=== PATIENT | male | born 1965 | race Caucasian/White ===

== ENCOUNTER 2017-09-12 15:10 | Inpatient (IN) | payer OTHER ==
[2017-09-12] MEDS ORDERED: SODIUM CHLORIDE 1,000 ML IV SCH (15:15)
--- NOTE | 2017-09-12 15:15 | PDOC ---
History of Present Illness - General Stated Complaint: WEAKNESS Time Seen by Provider: 09/12/17 15:13 - History of Present Illness Initial Comments: 09/12/17 16:07 Mr. Gandhi is a 51 yo male w/ pmh of HTN, HLD, and prior WI in 2010 (2 stents , currently on plavix), who presents with acute onset of right sided facial numbness and difficulty walking. EMS was called and by arrival his symptoms had resolved. He is currently resting comfortably although he says he forgot to take his medicines today. The patient denies chest pain, shortness of breath, headache and dizziness. Denies fever, chills, nausea, vomit, diarrhea and constipation. Denies dysuria, frequency, urgency and hematuria. Allergies: NKDA Past History - Past Medical History Allergies/Adverse Reactions: Allergies Allergy/AdvReac Type Severity Reaction Status Date / Time No Known Allergies Allergy Verified 09/12/17 15:38 Review of Systems - Review of Systems Comments:: 09/12/17 16:16 GENERAL/CONSTITUTIONAL: No fever or chills. No weakness. HEAD, EYES, EARS, NOSE AND THROAT: +Right sided facial tingling/numbness as described CARDIOVASCULAR: No chest pain or shortness of breath RESPIRATORY: No cough, wheezing, or hemoptysis. GASTROINTESTINAL: No nausea, vomiting, diarrhea or constipation. GENITOURINARY: No dysuria, frequency, or change in urination. MUSCULOSKELETAL:+Unspecified difficulty walking. SKIN: No rash NEUROLOGIC: No headache, vertigo, loss of consciousness, or change in strength/ sensation. ENDOCRINE: No increased thirst. No abnormal weight change HEMATOLOGIC/LYMPHATIC: No anemia, easy bleeding, or history of blood clots. ALLERGIC/IMMUNOLOGIC: No hives or skin allergy. *Physical Exam - Physical Exam Comments: 09/12/17 16:17 GENERAL: Awake, alert, and fully oriented, in no acute distress HEAD: No signs of trauma, normocephalic, atraumatic EYES: PERRLA, EOMI, sclera anicteric, conjunctiva clear ENT: Auricles normal inspection, hearing grossly normal, nares patent, oropharynx clear without exudates. Moist mucosa NECK: Normal ROM, supple, no lymphadenopathy, JVD, or masses LUNGS: No distress, speaks full sentences, clear to auscultation bilaterally HEART: Regular rate and rhythm, normal S1 and S2, no murmurs, rubs or gallops, peripheral pulses normal and equal bilaterally. ABDOMEN: Soft, nontender, normoactive bowel sounds. No guarding, no rebound. No masses EXTREMITIES: Normal inspection, Normal range of motion, no edema. No clubbing or cyanosis. NEUROLOGICAL: Cranial nerves II through XII grossly intact. Normal speech, normal gait, no focal sensorimotor deficits SKIN: Warm, Dry, normal turgor, no rashes or lesions noted. NIH Stroke Scale - Last Known Well Date/Time & Onset Date Last Known Well: 09/12/17 Time Last Known Well: 14:45 - Initial Evaluation Level of consciousness: Alert Ask patient the month and their age: Answers both correctly Ask patient to open & close eyes; make fist and let go: Obeys both correctly Best gaze (horizontal eye movement): Normal Visual field testing: No visual field loss Facial paresis (Show teeth/raise eyebrows/close eyes tight): Normal symmetrical movement Motor Function: Left Arm: Normal Motor Function: Right Arm: Normal (extends arm 90 (or 45) degrees for 10 seconds without drift Motor Function: Left Leg: Normal (extends leg 30 degrees for 5 seconds without drift) Motor Function: Right Leg: Normal (extends leg 30 degrees for 5 seconds without drift) Limb Ataxia: No ataxia Sensory(Use pinprick test arms,legs,trunk,face/side to side): Normal Best language (Describe picture, name items, read sentences): No Aphasia Dysarthria (read several words): Normal articulation Extinction and Inattention: No abnormality - Total Score NIH Stroke Scale Score: 0 tPA Exclusion Checklist 0-3hr - Time Elapsed Date last known well: 09/12/17 Time last known well: 14:45 Elaspsed time: Day(s) and 2 Hour(s) and 26 Minutes - Thrombolytic Therapy Candidate Is the patient eligible for Thrombolytic Therapy?: No - Exclusion Criteria 0-3hr SBP greater than 185 or DBP greater than 110mmHg despite tx: No Recent IC/spinal surgery,head trauma or stroke w/in last 3mo: No Hx of previous IC hemorrhage, IC neoplasm, AVM or aneurysm: No Active internal bleeding: No Blding diathesis(low plt ct, inc PTT,INR>1.7 or use of NOAC): No Symptoms suggest subarachnoid hemorrhage: No CT demonstrates multilobar infarct(>1/3 cerebral hemiphere): No Arterial puncture at noncompressible site in previous 7 days: No Blood glucose concentration less than 50mg/dL (2.7mmol/L): No - Relative Exclusion Criteria 0-3h Life expectancy <1yr/severe co-morbid illness/TEACHER SPECIALIST on admit: No : No Patient/family refused: No Rapid improvement: Yes Stroke severity too mild: No Recent acute WI (w/in previous 3 months): No Seizure at onset with postictal residual neuro impairments: No Major surgery or serious trauma w/in previous 14 days: No Recent GI or hemorrhage (w/in previous 21 days): No - Ineligibility reason(s) Reasons No tPA given: See reason(s) noted above Critical Care Time/MDM Note - Medical Decision Making Note: 09/12/17 16:19 Mr. Gandhi presents w/ complete resolution of all neurological symptoms. Stroke code activated with Dr. Puri consulted for neurology. Patient will be admitted for evaluation and monitoring as well as MRI. BP will be monitiored to maintain under 210/120 per neurology. 09/12/17 16:48 Patient will be admitted for obs and MRI. Discharge Disposition - Diagnosis TIA (transient ischemic attack) Qualifiers: Transient cerebral ischemia type: unspecified Qualified Code(s): G45.9 - Transient cerebral ischemic attack, unspecified - Discharge Dispostion Admit: Yes - Referrals - Patient Instructions - Post Discharge Activity
[2017-09-12] MEDS ORDERED: ATORVASTATIN CA 80 MG TABLET (FP) PO ONE (15:30)
[2017-09-12] MEDS ORDERED: ASPIRIN 325 MG TABLET PO ONE (15:30)
--- NOTE | 2017-09-12 15:40 | PDOC ---
Attending Attestation - Resident Resident Name: Chaka Retana - HPI HPI: 09/13/17 09:50 Pt presents to the ED with the acute onset of R sided weakness and numbness. PAtient and EMS report that when they arrived at the scene he was weak on his entire right side and unable to walk. Symptoms rapidly improved during transport to the hospital and now his only complaint is R facial and R finger numbness. - Physicial Exam PE: 09/13/17 09:54 Agree with resident exam. Patient is alert and oriented, with fluent, clear speech. Intact motor strength of arms and legs. No neurologic deficit identified except for decreased light touch sensation of R face and R fingertips. - Medical Decision Making 09/13/17 09:55 Pt presents to the ED with likely TIA. CT head is negative. Will admit to medicine for CT head and TIA work up.
[2017-09-12] MEDS ORDERED: ASPIRIN 325 MG TABLET ONE (16:15)
[2017-09-12] MEDS ORDERED: ATORVASTATIN CA 80 MG TABLET (FP) ONE (16:16)
[2017-09-12 16:39] LABS: BASOPHIL 0.4 % (0-2.0); EOSINOPHIL 1.7 % (0-4.5); MCH 30.5 pg (25.7-33.7); MCHC 33.9 g/dl (32.0-35.9); MEAN CELL VOLUME 90.1 fl (80-96); MEAN PLT VOLUME 9.8 fl (7.5-11.1); NEUTROPHILS 74.8 % (42.8-82.8); PLATELET COUNT 181 K/MM3 (134-434); RDW 14.3 % (11.9-15.9); URINE APPEARANCE CLEAR; URINE BILIRUBIN NEGATIVE (NEGATIVE); URINE BLOOD NEGATIVE (NEGATIVE); URINE COLOR LTYELLOW; URINE GLUCOSE (UA) 1+ (NEGATIVE); URINE KETONE NEGATIVE (NEGATIVE); URINE LEUK ESTERASE NEGATIVE (NEGATIVE); URINE NITRITE NEGATIVE (NEGATIVE); URINE PROTEIN NEGATIVE (NEGATIVE); WHITE BLOOD COUNT 5.2 K/mm3 (4.0-10.0)
[2017-09-12 17:04] LABS: INR 1.12 (0.82-1.09); PROTHROMBIN TIME (PATIENT) 12.6 SEC (9.98-11.88)
[2017-09-12 17:13] LABS: ALBUMIN 3.8 g/dl (3.4-5.0); ANION GAP 4 (8-16); BILIRUBIN,TOTAL 0.5 mg/dL (0.2-1.0); CALCIUM 8.5 mg/dL (8.5-10.1); CHOLESTEROL 119 mg/dL (50-200); CO2 31 mmol/L (21-32); CREATININE 1.3 mg/dL (0.7-1.3); GLUCOSE,RANDOM 108 mg/dL (74-106); SGOT/AST 18 U/L (15-37); SGPT/ALT 29 U/L (12-78); TOT PROT 7.3 g/dl (6.4-8.2)
[2017-09-12 17:14] LABS: ALK PHOS 81 U/L (45-117); CPK 244 IU/L (39-308); TROPONIN I 0.03 ng/ml (0.00-0.05)
[2017-09-12 19:07] LABS: URINE LEUK ESTERASE Negative (NEGATIVE)
[2017-09-12] MEDS ORDERED: POTASSIUM CHLORIDE TABS 20 MEQ TABLET.ER (FP) PO SCH (19:45)
--- NOTE | 2017-09-12 20:05 | HP ---
CHIEF COMPLAINT: Right facial numbness, difficulty swallowing, tingling to tips of fingers of right hand. PCP: Willis Greenberg, [place] [facility]: Dr. Boy Hoffman, [facility] [phone] HISTORY OF PRESENT ILLNESS: 51 year-old male with a PMH significant for HTN, HLD, CAD s/p MA s/p stents x 2 (2010). 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 He was eating his lunch today when he developed right facial numbness, difficulty swallowing, and tingling in the fingertips of his right hand. His co-workers called 911. By the time EMS arrived , his symptoms were resolving, and by the time he reached the ED they were completely resolved. The symptoms have not recurred. Patient states he did not take his home medications for the past two days because he was busy but is generally compliant with his medication regimen. He last saw his mortgage accounting clerk, Dr. Hoffman, a year ago. He gets his prescriptions at [facility] in [place]. Patient denies chest pain/pressure, palpitations, lightheadedness, SOB, VU, orthopnea, and/or bilateral lower extremity edema. He denies headache, vision change, and/or weakness in any extremity. ER course was notable for: (1) BP 178/128 (2) Trop neg x 1 (3) CT head: no acute process Recent Travel: No PAST MEDICAL HISTORY: Hypertension Hyperlipidemia Coronary artery disease PAST SURGICAL HISTORY: Coronary artery disease x 2 (2000) Social History: Smoking: no Alcohol: occasional Drugs: no Family History: Mother 44 of MA; father 48 after MVC; brother 44 "heart too big"; sister 46 ovarian cancer; 2 brothers a&w Allergies No Known Allergies Allergy (Verified 09/12/17 15:38) HOME MEDICATIONS: REVIEW OF SYSTEMS CONSTITUTIONAL: Absent: fever, chills, diaphoresis, generalized weakness, malaise, loss of appetite, weight change HEENT: Absent: rhinorrhea, nasal congestion, throat pain, throat swelling, difficulty swallowing, mouth swelling, ear pain, eye pain, visual changes CARDIOVASCULAR: Absent: chest pain, syncope, palpitations, irregular heart rate, lightheadedness , peripheral edema RESPIRATORY: Absent: cough, shortness of breath, dyspnea with exertion, orthopnea, wheezing, stridor, hemoptysis GASTROINTESTINAL: Absent: abdominal pain, abdominal distension, nausea, vomiting, diarrhea, constipation, melena, hematochezia GENITOURINARY: Absent: dysuria, frequency, urgency, hesitancy, hematuria, flank pain, genital pain MUSCULOSKELETAL: Absent: myalgia, arthralgia, joint swelling, back pain, neck pain SKIN: Absent: rash, itching, pallor HEMATOLOGIC/IMMUNOLOGIC: Absent: easy bleeding, easy bruising, lymphadenopathy, frequent infections ENDOCRINE: Absent: unexplained weight gain, unexplained weight loss, heat intolerance, cold intolerance NEUROLOGIC: right facial numbness, difficulty swallowing, tingling to tips of fingers of right hand. Absent: headache, focal weakness or paresthesias, dizziness, unsteady gait, seizure, mental status changes, bladder or bowel incontinence PSYCHIATRIC: Absent: anxiety, depression, suicidal or homicidal ideation, hallucinations. PHYSICAL EXAMINATION Vital Signs - 24 hr 09/12/17 09/12/17 15:34 18:22 Temperature 98.3 F Pulse Rate 83 Pulse Rate [ 77 Right Radial] Respiratory 18 18 Rate Blood Pressure 178/128 Blood Pressure 159/103 [Right Arm] O2 Sat by Pulse 97 99 Oximetry (%) GENERAL: Awake, alert, and fully oriented, in no acute distress. HEAD: Normal with no signs of trauma. EYES: Pupils equal, round and reactive to light, extraocular movements intact, sclera anicteric, conjunctiva clear. No lid lag. EARS, NOSE, THROAT: Ears normal, nares patent, oropharynx clear without exudates. Moist mucous membranes. NECK: Normal range of motion, supple without lymphadenopathy, JVD, or masses. LUNGS: Breath sounds equal, clear to auscultation bilaterally. No wheezes, and no crackles. No accessory muscle use. HEART: Regular rate and rhythm, normal S1 and S2, murmur best heard over aortic area. ABDOMEN: Soft, nontender, not distended, normoactive bowel sounds, no guarding, no rebound, no masses. No hepatomegaly or splenomegaly. MUSCULOSKELETAL: Normal range of motion at all joints. No bony deformities or tenderness. No CVA tenderness. UPPER EXTREMITIES: 2+ pulses, warm, well-perfused. No cyanosis. No clubbing. No peripheral edema. LOWER EXTREMITIES: 2+ pulses, warm, well-perfused. No calf tenderness. No peripheral edema. NEUROLOGICAL: Cranial nerves II-XII intact. Normal speech. Gait not observed. PSYCHIATRIC: Cooperative. Good eye contact. Appropriate mood and affect. SKIN: Warm, dry, normal turgor Laboratory Results - last 24 hr 09/12/17 09/12/17 09/12/17 16:30 16:30 16:30 WBC 5.2 RBC 4.78 Hgb 14.6 Hct 43.1 MCV 90.1 MCH 30.5 MCHC 33.9 RDW 14.3 Plt Count 181 MPV 9.8 Neutrophils % 74.8 Lymphocytes % 14.7 Monocytes % 8.4 Eosinophils % 1.7 Basophils % 0.4 PT with INR 12.60 H INR 1.12 Sodium Potassium Chloride Carbon Dioxide Anion Gap BUN Creatinine Creat Clearance w eGFR Random Glucose Calcium Total Bilirubin AST ALT Alkaline Phosphatase Creatine Kinase Troponin I Total Protein Albumin Triglycerides Cholesterol Total LDL Cholesterol HDL Cholesterol Urine Color Ltyellow Urine Appearance Clear Urine pH 6.0 Ur Specific [place] 1.016 Urine Protein Negative Urine Glucose (UA) 1+ H Urine Ketones Negative Urine Blood Negative Urine Nitrite Negative Urine Bilirubin Negative Urine Urobilinogen 2.0 Ur Leukocyte Esterase Negative Blood Type Antibody Screen 09/12/17 09/12/17 16:30 16:30 WBC RBC Hgb Hct MCV MCH MCHC RDW Plt Count MPV Neutrophils % Lymphocytes % Monocytes % Eosinophils % Basophils % PT with INR INR Sodium 138 Potassium 3.4 L Chloride 103 Carbon Dioxide 31 Anion Gap 4 L BUN 18 Creatinine 1.3 Creat Clearance w eGFR 58.43 Random Glucose 108 H Calcium 8.5 Total Bilirubin 0.5 AST 18 ALT 29 Alkaline Phosphatase 81 Creatine Kinase 244 Troponin I 0.03 Total Protein 7.3 Albumin 3.8 Triglycerides 81 Cholesterol 119 Total LDL Cholesterol 65 HDL Cholesterol 42 Urine Color Urine Appearance Urine pH Ur Specific [place] Urine Protein Urine Glucose (UA) Urine Ketones Urine Blood Urine Nitrite Urine Bilirubin Urine Urobilinogen Ur Leukocyte Esterase Blood Type A POSITIVE Antibody Screen Negative ASSESSMENT/PLAN: 51 year-old male with a PMH significant for HTN, HLD, CAD s/p MA s/p stents x 2 (2010). TIA v. CVA v. hypertensive encephalopathy --CT head negative for acute process; mild calcification of cavernous carotid arteries --MRI brain pending --US carotids ordered --continue ASA, Plavix, high-dose Lipitor --neuro consult pending CAD s/p stents x 2 --troponin neg x 1, two pending --CXR pending --ASA, Plavix, Lipitor; hold beta clifton for now for permissive hypertension Hypertensive urgency --seen and evaluated by neuro, BP goal <210/<120 --BP 178/128-->159/103-->160/97 --hold home anti-hypertensives, Toprol XL and Losartan; restart cautiously tonight if BP exceeds goal --vital signs q4h, reinforced with nursing staff, their input appreciated Hyperlipidemia --continue Lipitor Hypokalemia --repleted with PO FEN Fluids: PO intake adequate Electrolytes: replete as indicated Nutrition: NPO until nurse makes initial bedside assessment; formal swallow evaluation if needed DVT prophylaxis: subq heparin Physical therapy evaluation Dispo: continues to require observation. Full code. Visit type - Emergency Visit Emergency Visit: Yes ED Registration Date: 09/12/17 Care time: The patient presented to the Emergency Department on the above date and was hospitalized for further evaluation of their emergent condition. - New Patient This patient is new to me today: Yes Date on this admission: 09/12/17 - Critical Care Critical Care patient: No
[2017-09-12] MEDS: CLOPIDOGREL BISULFATE 75 MG TABLET (FP) PO SCH (21:40)
[2017-09-12] MEDS ORDERED: CLOPIDOGREL BISULFATE 75 MG TABLET (FP) ONE (21:43)
[2017-09-12] MEDS ORDERED: POTASSIUM CHLORIDE TABS 20 MEQ TABLET.ER (FP) PO ONE (21:44)
[2017-09-12] MEDS: HEPARIN NA (PORCINE) 5,000 UNITS/ML 1ML VIAL SQ SCH (22:54)
[2017-09-12 23:26] VITALS: BMI 32.7
[2017-09-12] MEDS ORDERED: ACETAMINOPHEN 325 MG TABLET (FP) PO ONE (23:36)
[2017-09-13] MEDS: HEPARIN NA (PORCINE) 5,000 UNITS/ML 1ML VIAL SQ SCH ×3 (05:44→21:04)
[2017-09-13 07:35] LABS: BASOPHIL 0.8 % (0-2.0); EOSINOPHIL 4.2 % (0-4.5); MCH 30.5 pg (25.7-33.7); MEAN CELL VOLUME 89.7 fl (80-96); MEAN PLT VOLUME 9.9 fl (7.5-11.1); NEUTROPHILS 51.3 % (42.8-82.8); PLATELET COUNT 177 K/MM3 (134-434); RDW 13.8 % (11.9-15.9); WHITE BLOOD COUNT 3.8 K/mm3 (4.0-10.0)
[2017-09-13 08:06] LABS: ALBUMIN 3.8 g/dl (3.4-5.0); ALK PHOS 69 U/L (45-117); ANION GAP 8 (8-16); BILIRUBIN,TOTAL 0.9 mg/dL (0.2-1.0); CALCIUM 8.9 mg/dL (8.5-10.1); CO2 27 mmol/L (21-32); CREATININE 0.9 mg/dL (0.7-1.3); GLUCOSE,RANDOM 81 mg/dL (74-106); MAGNESIUM 2.2 mg/dL (1.8-2.4); PHOSPHOROUS 2.1 mg/dL (2.5-4.9); SGOT/AST 13 U/L (15-37); SGPT/ALT 25 U/L (12-78); TOT PROT 6.8 g/dl (6.4-8.2)
[2017-09-13 08:27] LABS: THYROID STIMULATING HORMONE 1.41 uIU/ml (0.358-3.74)
[2017-09-13] MEDS: POTASSIUM CHLORIDE TABS 20 MEQ TABLET.ER (FP) PO SCH ×2 (09:14→16:09)
[2017-09-13] MEDS: CLOPIDOGREL BISULFATE 75 MG TABLET (FP) PO SCH (09:15)
--- NOTE | 2017-09-13 09:47 | CON.CARD ---
Consult Consult Specialty:: Cardiology Referred by:: Hospitalist Medicine Reason for Consultation:: TIA - History of Present Illness Chief Complaint: TIA History of Present Illness: Right facial numbness, difficulty swallowing, tingling to tips of fingers of right hand. PCP: Willis Greenberg [place] [facility] [phone] HISTORY OF PRESENT ILLNESS: 51 year-old male with a PMH significant for HTN, HLD, CAD s/p NE s/p stents x 2 (2010). Patient presented with right facial numbness, difficulty swallowing, and tingling in the fingertips of his right hand since resolved without recurrence. Patient states he did not take his home medications for the past two days because he was busy but is generally compliant with his medication regimen. He last saw his linux devops engineer, Dr. Hoffman, a year ago. He gets his prescriptions at [facility] in [place]. Patient denies chest pain/ pressure, palpitations, lightheadedness, SOB, VU, orthopnea, and/or bilateral lower extremity edema. He denies headache, vision change, and/or weakness in any extremity. ER course was notable for: (1) BP 178/128 (2) Trop neg x 1 (3) CT head: no acute process - History Source History Provided By: Patient Limitations to Obtaining History: No Limitations - Past Medical History Cardio/Vascular: Yes: CAD, HTN, Hyperlipdemia, [place] - Past Surgical History Past Surgical History: Yes: Stent - Alcohol/Substance Use Hx Alcohol Use: Yes (socially) - Smoking History Smoking history: Never smoked Have you smoked in the past 12 months: No Home Medications - Allergies Allergies/Adverse Reactions: Allergies Allergy/AdvReac Type Severity Reaction Status Date / Time No Known Allergies Allergy Verified 09/12/17 15:38 - Home Medications Home Medications: Ambulatory Orders Aspirin [Ecotrin] 325 mg PO DAILY 09/12/17 Atorvastatin Ca [Lipitor] 40 mg PO HS 09/12/17 Clopidogrel Bisulfate [Plavix -] 75 mg PO DAILY 09/12/17 Losartan Potassium 50 mg PO DAILY 09/12/17 Metoprolol Succinate [Toprol Xl -] 100 mg PO DAILY 09/12/17 Review of Systems - Review of Systems Neurological: reports: Parasthesia Vital Signs: Vital Signs Temperature 98.1 F 09/13/17 09:13 Pulse Rate 80 09/13/17 09:13 Respiratory Rate 18 09/13/17 09:13 Blood Pressure 157/105 09/13/17 09:13 O2 Sat by Pulse Oximetry (%) 97 09/13/17 06:00 Constitutional: Yes: No Distress, Calm Neck: Yes: Supple Respiratory: Yes: Regular, CTA Bilaterally Gastrointestinal: Yes: Normal Bowel Sounds, Soft Cardiovascular: Yes: Regular Rate and Rhythm JVD: No Carotid Bruit: No Heart Sounds: Yes: S1, S2 Edema: No - Other Data Labs, Other Data: CBC, BMP 09/13/17 06:00 09/13/17 06:00 INR, PTT INR 1.12 (0.82-1.09) 09/12/17 16:30 Troponin, BNP 09/12/17 09/12/17 16:30 22:05 Troponin I 0.03 0.04 D Troponin, BNP 09/12/17 09/12/17 16:30 22:05 Troponin I 0.03 0.04 D NSR @ 78 LVH, PVC Ejection Fraction %: LVEF > or = 40 % Imaging - Results Chest X-ray: Report Reviewed (NAD) Cat Scan: Report Reviewed (No acute changes) MRI: Report Reviewed (No acute stroke, chronic left thalamic microbleed, SVID) Problem List - Problems (1) Coronary artery disease Code(s): I25.10 - ATHSCL HEART DISEASE OF [place] CORONARY ARTERY W/O ANG PCTRS Qualifiers: Coronary Disease-Associated Artery/Lesion type: [place] artery [place] vs. transplanted heart: cherokee heart Associated angina: without angina Qualified Code(s): I25.10 - Atherosclerotic heart disease of [place] coronary artery without angina pectoris (2) S/P coronary artery stent placement Code(s): Z95.5 - PRESENCE OF CORONARY ANGIOPLASTY IMPLANT AND GRAFT (3) Hypertensive cardiomyopathy Code(s): I11.9 - HYPERTENSIVE HEART DISEASE WITHOUT HEART FAILURE; I43 - CARDIOMYOPATHY IN DISEASES CLASSIFIED ELSEWHERE Qualifiers: Heart failure presence: without heart failure Qualified Code(s): I11.9 - Hypertensive heart disease without heart failure; I43 - Cardiomyopathy in diseases classified elsewhere; I43 - Cardiomyopathy in diseases classified elsewhere; I43 - Cardiomyopathy in diseases classified elsewhere; I43 - Cardiomyopathy in diseases classified elsewhere (4) Hyperlipidemia Code(s): E78.5 - HYPERLIPIDEMIA, UNSPECIFIED Qualifiers: Hyperlipidemia type: pure hypercholesterolemia Qualified Code(s): E78.00 - Pure hypercholesterolemia, unspecified; E78.0 - Pure hypercholesterolemia (5) PVC (premature ventricular contraction) Code(s): I49.3 - VENTRICULAR PREMATURE DEPOLARIZATION (6) Cerebrovascular small vessel disease Code(s): I67.9 - CEREBROVASCULAR DISEASE, UNSPECIFIED (7) TIA (transient ischemic attack) Code(s): G45.9 - TRANSIENT CEREBRAL ISCHEMIC ATTACK, UNSPECIFIED Qualifiers: Transient cerebral ischemia type: unspecified Qualified Code(s): G45.9 - Transient cerebral ischemic attack, unspecified Assessment/Plan 1. TIA since resolved, cerebrovascular disease 2. CAD s/p NE, PCI (Stent 2010), angina pectoris 3. HTN/HCVD 4. Hyperlipidemia 5. PVC P:1. Continue ASA 81 qd, Plavix 75 qd, Lipitor 40 qhs, and resume losartan 50 qd , Toprol XL 100 qd 2. F/u echocardiogram to assess ventricular and valve fxn, cardiac monitor technician r/ o PAF 3. Emphasized importance of compliance 4. Thank you for consultative opportunity, plan for f/u with Dr. Hoffman of [facility] upon d/c.
[2017-09-13] MEDS ORDERED: ASPIRIN COATED 81 MG TABLET.EC PO SCH (10:00)
[2017-09-13] MEDS ORDERED: ASPIRIN 325 MG ENTERIC COATED TABLET (FP) PO SCH (10:00)
--- NOTE | 2017-09-13 10:09 | CON.NEURO ---
Consult - History of Present Illness History of Present Illness: 51 year old male history of HTN, HLD, CAD s/p Stents x 2010. Patient was working and experienced right sided face and arm numbness with difficulty swallowing. Patient was brought to hospital and his blood pressure was high. For two days he was not taking any medication, he was busy with work. - Past Medical History Cardio/Vascular: Yes: CAD, HTN, Hyperlipdemia, [place] - Past Surgical History Past Surgical History: Yes: Stent - Alcohol/Substance Use Hx Alcohol Use: Yes (socially) - Smoking History Smoking history: Never smoked Have you smoked in the past 12 months: No Home Medications - Allergies Allergies/Adverse Reactions: Allergies Allergy/AdvReac Type Severity Reaction Status Date / Time No Known Allergies Allergy Verified 09/12/17 15:38 - Home Medications Home Medications: Ambulatory Orders Aspirin [Ecotrin] 325 mg PO DAILY 09/12/17 Atorvastatin Ca [Lipitor] 40 mg PO HS 09/12/17 Clopidogrel Bisulfate [Plavix -] 75 mg PO DAILY 09/12/17 Losartan Potassium 50 mg PO DAILY 09/12/17 Metoprolol Succinate [Toprol Xl -] 100 mg PO DAILY 09/12/17 Physical Exam-Neuro Vital Signs: Vital Signs Temperature 98.1 F 09/13/17 09:13 Pulse Rate 80 09/13/17 09:13 Respiratory Rate 18 09/13/17 09:13 Blood Pressure 157/105 09/13/17 09:13 O2 Sat by Pulse Oximetry (%) 97 09/13/17 06:00 Labs: CBC, BMP 09/13/17 06:00 09/13/17 06:00 INR, PTT INR 1.12 (0.82-1.09) 09/12/17 16:30 Imaging - Results Cat Scan: Report Reviewed MRI: Report Reviewed Assessment/Plan CC right face numbness, difficulty swalling and tingling of right hand HPI 51 year old male history of HTN, HLD, CAD s/p Stents x 2010. Patient was working and experienced right sided face and arm numbness with difficulty swallowing. Patient was brought to hospital and his blood pressure was high. For two days he was not taking any medication, he was busy with work. PMH as above Medication-metoprolol, plavix and lipitor SH denies any toxic habits NKDA ROS reviewed in chart Neurological Examination afebrile bp 157/105, pulse 80 regular and rr 18 Alert oriented x 3 follow command and speech is normal EOMI, no face asymmetry , vf normal by conforntation motor is normal, sensation is normal ct head is normal mri of brain is normal carotid ultrasound is normal Assessment- Most likely tia due to stoppage of his medication Plan - continue antiplatelet and statin as current dose - as symptom happen yesterday early afternoon, now antihypertensive medication can chio resumed - carotid ultrasound pending - stroke education, emphasized to take medication and life style modifications follow up as outpatient Thank you so much Yazan Puri MD
[2017-09-13 12:13] LABS: TROPONIN I 0.04 ng/ml (0.00-0.05)
--- NOTE | 2017-09-13 13:04 | PN ---
Physical Exam: SUBJECTIVE: Patient seen and examined. Feels well, voices no complaints. No recurrence of numbness or paresthesias. OBJECTIVE: Vital Signs Period Temp Pulse Resp BP Sys/Novoa Pulse Ox Last 24 Hr 97.6 F-98.7 F 60-99 18-18 157-178/94-128 97-100 GENERAL: The patient is awake, alert, and fully oriented, in no acute distress. LUNGS: CTA HEART: RRR, S1, S2 ABDOMEN: Soft, nontender, nondistended, normoactive bowel sounds, no guarding, no rebound EXTREMITIES: 2+ pulses, warm, well-perfused, no edema NEUROLOGICAL: Cranial nerves II through XII intact. Normal speech, gait not observed. Laboratory Results - last 24 hr 09/12/17 09/12/17 09/12/17 16:30 16:30 16:30 WBC 5.2 RBC 4.78 Hgb 14.6 Hct 43.1 MCV 90.1 MCH 30.5 MCHC 33.9 RDW 14.3 Plt Count 181 MPV 9.8 Neutrophils % 74.8 Lymphocytes % 14.7 Monocytes % 8.4 Eosinophils % 1.7 Basophils % 0.4 PT with INR 12.60 H INR 1.12 Sodium Potassium Chloride Carbon Dioxide Anion Gap BUN Creatinine Creat Clearance w eGFR Random Glucose Calcium Phosphorus Magnesium Total Bilirubin AST ALT Alkaline Phosphatase Creatine Kinase Creatine Kinase Index CK-MB (CK-2) Troponin I Total Protein Albumin Triglycerides Cholesterol Total LDL Cholesterol HDL Cholesterol TSH Urine Color Ltyellow Urine Appearance Clear Urine pH 6.0 Ur Specific [place] 1.016 Urine Protein Negative Urine Glucose (UA) 1+ H Urine Ketones Negative Urine Blood Negative Urine Nitrite Negative Urine Bilirubin Negative Urine Urobilinogen 2.0 Ur Leukocyte Esterase Negative Blood Type Antibody Screen 09/12/17 09/12/17 09/12/17 16:30 16:30 22:05 WBC RBC Hgb Hct MCV MCH MCHC RDW Plt Count MPV Neutrophils % Lymphocytes % Monocytes % Eosinophils % Basophils % PT with INR INR Sodium 138 Potassium 3.4 L Chloride 103 Carbon Dioxide 31 Anion Gap 4 L BUN 18 Creatinine 1.3 Creat Clearance w eGFR 58.43 Random Glucose 108 H Calcium 8.5 Phosphorus Magnesium Total Bilirubin 0.5 AST 18 ALT 29 Alkaline Phosphatase 81 Creatine Kinase 244 Creatine Kinase Index 1.4 CK-MB (CK-2) 3.458 Troponin I 0.03 0.04 D Total Protein 7.3 Albumin 3.8 Triglycerides 81 Cholesterol 119 Total LDL Cholesterol 65 HDL Cholesterol 42 TSH Urine Color Urine Appearance Urine pH Ur Specific [place] Urine Protein Urine Glucose (UA) Urine Ketones Urine Blood Urine Nitrite Urine Bilirubin Urine Urobilinogen Ur Leukocyte Esterase Blood Type A POSITIVE Antibody Screen Negative 09/12/17 09/13/17 09/13/17 Unknown 06:00 06:00 WBC 3.8 L RBC 4.83 Hgb 14.8 Hct 43.4 MCV 89.7 MCH 30.5 MCHC 34.0 RDW 13.8 Plt Count 177 MPV 9.9 Neutrophils % 51.3 D Lymphocytes % 32.2 D Monocytes % 11.5 H Eosinophils % 4.2 D Basophils % 0.8 PT with INR INR Sodium 141 Potassium 3.5 Chloride 106 Carbon Dioxide 27 Anion Gap 8 BUN 12 D Creatinine 0.9 D Creat Clearance w eGFR > 60 Random Glucose 81 D Calcium 8.9 Phosphorus 2.1 L Magnesium 2.1 2.2 Total Bilirubin 0.9 D AST 13 L D ALT 25 Alkaline Phosphatase 69 Creatine Kinase Creatine Kinase Index CK-MB (CK-2) Troponin I 0.04 Total Protein 6.8 Albumin 3.8 Triglycerides Cholesterol Total LDL Cholesterol HDL Cholesterol TSH 1.41 Urine Color Urine Appearance Urine pH Ur Specific [place] Urine Protein Urine Glucose (UA) Urine Ketones Urine Blood Urine Nitrite Urine Bilirubin Urine Urobilinogen Ur Leukocyte Esterase Blood Type Antibody Screen Active Medications Generic Name Dose Route Start Last Admin Trade Name Freq PRN Reason Stop Dose Admin Aspirin 81 mg 09/13/17 13:02 Ecotrin - PO DAILY [facility] Atorvastatin Calcium 40 mg 09/13/17 22:00 Lipitor - PO HS [facility] Clopidogrel Bisulfate 75 mg 09/12/17 20:20 09/13/17 09:15 Plavix - PO 75 mg DAILY [facility] Administration Heparin Sodium (Porcine) 5,000 unit 09/12/17 22:00 09/13/17 05:44 Heparin - SQ 5,000 unit TID [facility] Administration Losartan Potassium 50 mg 09/13/17 13:15 Cozaar - PO DAILY [facility] Metoprolol Succinate 100 mg 09/13/17 13:15 Toprol Xl - PO DAILY [facility] Potassium Chloride 40 meq 09/13/17 10:00 09/13/17 09:14 K-Dur - PO 09/13/17 16:01 40 meq Q6H [facility] Administration ASSESSMENT/PLAN 51 year-old male with a PMH significant for HTN, HLD, CAD s/p [place] s/p stents x 2 (2010). TIA --CT head negative for acute process; mild calcification of cavernous carotid arteries --MRI brain: no definite infarct; microvascular chronic changes --US carotids: unremarkable --continue ASA, Plavix, high-dose Lipitor --neuro consult: TIA likely secondary to not taking ASA/Plavix for 48 hours --echo on Friday CAD s/p stents x 2 --no events on telemetry; serial ECGs sinus carleen --troponin neg x 3 --CXR unremarkable --continuue ASA, Plavix, Lipitor, Toprol XL Hypertensive urgency --seen and evaluated by neuro, OK to resume anti-hypertensives --restarted Toprol XL and Losartan, this evening BP still elevated 153/100; increase Losartan 50mg BID Hyperlipidemia --continue Lipitor Hypokalemia --repleted with PO; keep K>4 FEN Fluids: PO intake adequate Electrolytes: replete as indicated Nutrition: low sodium DVT prophylaxis: subq heparin Physical therapy evaluation Dispo: continues to require observation. Full code. Visit type - Emergency Visit Emergency Visit: Yes ED Registration Date: 09/12/17 Care time: The patient presented to the Emergency Department on the above date and was hospitalized for further evaluation of their emergent condition. - New Patient This patient is new to me today: No - Critical Care Critical Care patient: No
[2017-09-13] MEDS ORDERED: LOSARTAN POTASSIUM 50 MG TABLET (FP) PO SCH (13:15)
[2017-09-13] MEDS: METOPROLOL SUCCINATE 100 MG TAB.SR.24H (FP) PO SCH (13:38)
--- NOTE | 2017-09-13 20:17 | EKG ---
Test Reason : Blood Pressure : / mmHG Vent. Rate : 078 BPM Atrial Rate : 078 BPM P-R Int : 150 ms QRS Dur : 098 ms QT Int : 410 ms P-R-T Axes : 025 -23 -08 degrees QTc Int : 467 ms SINUS RHYTHM WITH OCCASIONAL PREMATURE VENTRICULAR COMPLEXES MINIMAL VOLTAGE CRITERIA FOR LVH, MAY BE NORMAL VARIANT SEPTAL INFARCT , AGE UNDETERMINED T WAVE ABNORMALITY, CONSIDER LATERAL ISCHEMIA ABNORMAL ECG NO PREVIOUS ECGS AVAILABLE Confirmed by YASMANY MINAYA, VIPUL ([id number]) on 09/13/2017 8:16:52 PM Referred By: Confirmed By:VIPUL JADE MD
[2017-09-13] MEDS: LOSARTAN POTASSIUM 50 MG TABLET (FP) PO SCH (21:04)
[2017-09-13] MEDS: ATORVASTATIN CA 40 MG TABLET (FP) PO SCH (21:04)
[2017-09-13] MEDS ORDERED: ATORVASTATIN CA 80 MG TABLET (FP) PO SCH (22:00)
[2017-09-13] MEDS ORDERED: ATORVASTATIN CA 40 MG TABLET (FP) PO SCH (22:00)
--- NOTE | 2017-09-13 22:11 | EKG ---
Test Reason : Blood Pressure : / mmHG Vent. Rate : 077 BPM Atrial Rate : 077 BPM P-R Int : 152 ms QRS Dur : 092 ms QT Int : 426 ms P-R-T Axes : 021 -28 000 degrees QTc Int : 482 ms SINUS RHYTHM WITH OCCASIONAL PREMATURE VENTRICULAR COMPLEXES AND PREMATURE ATRIAL COMPLEXES SEPTAL INFARCT (CITED ON OR BEFORE 12-SEP-2017) T WAVE ABNORMALITY, CONSIDER LATERAL ISCHEMIA ABNORMAL ECG WHEN COMPARED WITH ECG OF 12-SEP-2017 15:38, PREMATURE ATRIAL COMPLEXES ARE NOW PRESENT Confirmed by VIPUL JADE MD ([id number]) on 09/13/2017 10:11:01 PM Referred By: Natacha REINOSO Confirmed By:VIPUL JADE MD
[2017-09-14] MEDS ORDERED: ACETAMINOPHEN 325 MG TABLET (FP) PO PRN (01:40)
[2017-09-14] MEDS: HEPARIN NA (PORCINE) 5,000 UNITS/ML 1ML VIAL SQ SCH ×3 (05:39→22:04)
--- NOTE | 2017-09-14 07:53 | PN ---
Physical Exam: SUBJECTIVE: Patient seen and examined. Continues to feel well, no recurrence of symptoms. OBJECTIVE: Vital Signs Period Temp Pulse Resp BP Sys/Novoa Pulse Ox Last 24 Hr 97.8 F-98.4 F 63-80 16-20 148-157/92-109 97 GENERAL: The patient is awake, alert, and fully oriented, in no acute distress. LUNGS: CTA HEART: RRR, S1, S2 ABDOMEN: Soft, nontender, nondistended, normoactive bowel sounds, no guarding, no rebound EXTREMITIES: 2+ pulses, warm, well-perfused, no edema NEUROLOGICAL: Cranial nerves II through XII intact. Normal speech, gait not observed. Laboratory Results - last 24 hr 09/13/17 06:00 Sodium 141 Potassium 3.5 Chloride 106 Carbon Dioxide 27 Anion Gap 8 BUN 12 D Creatinine 0.9 D Creat Clearance w eGFR > 60 Random Glucose 81 D Calcium 8.9 Phosphorus 2.1 L Magnesium 2.2 Total Bilirubin 0.9 D AST 13 L D ALT 25 Alkaline Phosphatase 69 Troponin I 0.04 Total Protein 6.8 Albumin 3.8 TSH 1.41 Active Medications Generic Name Dose Route Start Last Admin Trade Name Freq PRN Reason Stop Dose Admin Acetaminophen 650 mg 09/14/17 01:40 Tylenol - PO Q6H PRN FEVER OR PAIN Aspirin 81 mg 09/14/17 10:00 Ecotrin - PO DAILY [facility] Atorvastatin Calcium 40 mg 09/13/17 22:00 09/13/17 21:04 Lipitor - PO 40 mg HS [facility] Administration Clopidogrel Bisulfate 75 mg 09/12/17 20:20 09/13/17 09:15 Plavix - PO 75 mg DAILY [facility] Administration Heparin Sodium (Porcine) 5,000 unit 09/12/17 22:00 09/14/17 05:39 Heparin - SQ 5,000 unit TID [facility] Administration Losartan Potassium 50 mg 09/13/17 22:00 09/13/17 21:04 Cozaar - PO 50 mg BID [facility] Administration Metoprolol Succinate 100 mg 09/13/17 13:15 09/13/17 13:38 Toprol Xl - PO 100 mg DAILY [facility] Administration ASSESSMENT/PLAN: 51 year-old male with a PMH significant for HTN, HLD, CAD s/p [place] s/p stents x 2 (2010). TIA --CT head negative for acute process; mild calcification of cavernous carotid arteries --MRI brain: no definite infarct; microvascular chronic changes --US carotids: unremarkable --continue ASA, Plavix, high-dose Lipitor --neuro consult: TIA likely secondary to not taking ASA/Plavix for 48 hours --echo tomorrow CAD s/p stents x 2 --no events on telemetry; serial ECGs sinus carelen --troponin neg x 3 --CXR unremarkable --continuue ASA, Plavix, Lipitor, Toprol XL Hypertensive urgency --seen and evaluated by neuro, OK to resume anti-hypertensives --restarted Toprol XL and Losartan, this evening BP still elevated 153/100; increase Losartan to 50mg BID Hyperlipidemia --continue Lipitor Hypokalemia --repleted with PO; keep K>4 FEN Fluids: PO intake adequate Electrolytes: replete as indicated Nutrition: low sodium DVT prophylaxis: subq heparin Visit type - Emergency Visit Emergency Visit: Yes ED Registration Date: 09/15/17 Care time: The patient presented to the Emergency Department on the above date and was hospitalized for further evaluation of their emergent condition. - New Patient This patient is new to me today: No - Critical Care Critical Care patient: No
[2017-09-14] MEDS: ASPIRIN COATED 81 MG TABLET.EC PO SCH (09:01)
[2017-09-14] MEDS: CLOPIDOGREL BISULFATE 75 MG TABLET (FP) PO SCH (09:01)
[2017-09-14] MEDS: METOPROLOL SUCCINATE 100 MG TAB.SR.24H (FP) PO SCH (09:01)
[2017-09-14] MEDS: LOSARTAN POTASSIUM 50 MG TABLET (FP) PO SCH ×2 (09:01→22:04)
--- NOTE | 2017-09-14 10:44 | PN ---
Progress Note (short form) - Note Progress Note: 51 year old male history of HTN, HLD, CAD s/p Stents x 2010. Patient was working and experienced right sided face and arm numbness with difficulty swallowing. Patient was brought to hospital and his blood pressure was high. For two days he was not taking any medication, he was busy with work. mri of brain , CT head and Carotid Ultrasound was normal. Neurological Examination afebrile bp 157/105, pulse 80 regular and rr 18 Alert oriented x 3 follow command and speech is normal EOMI, no face asymmetry , vf normal by conforntation motor is normal, sensation is normal ct head is normal mri of brain is normal carotid ultrasound is normal Assessment- TIA, Risk factor include HTN,HLD AND CAD Plan - Continue antiplatelet and statin as current dose - stroke education, emphasized to take medication and life style modifications follow up in clinic outpatient follow up as outpatient Thank you so much Yazan Puri MD
[2017-09-14] MEDS: ATORVASTATIN CA 40 MG TABLET (FP) PO SCH (22:04)
[2017-09-15] MEDS: HEPARIN NA (PORCINE) 5,000 UNITS/ML 1ML VIAL SQ SCH ×3 (05:20→21:49)
[2017-09-15] MEDS: METOPROLOL SUCCINATE 100 MG TAB.SR.24H (FP) PO SCH ×3 (08:50→21:49)
[2017-09-15] MEDS: ASPIRIN COATED 81 MG TABLET.EC PO SCH ×2 (08:50→09:01)
--- NOTE | 2017-09-15 08:50 | DS ---
Physical Exam: SUBJECTIVE: Patient seen and examined OBJECTIVE: Vital Signs Period Temp Pulse Resp BP Sys/Novoa Pulse Ox Last 24 Hr 97.7 F-98.8 F 56-70 16-20 130-151/80-112 92-97 PHYSICAL EXAM GENERAL: The patient is awake, alert, and fully oriented, in no acute distress. HEAD: Normal with no signs of trauma. EYES: PERRL, extraocular movements intact, sclera anicteric, conjunctiva clear. ENT: Ears normal, nares patent, oropharynx clear without exudates, moist mucous membranes. NECK: Trachea midline, full range of motion, supple. LUNGS: Breath sounds equal, clear to auscultation bilaterally, no wheezes, no crackles, no accessory muscle use. HEART: Regular rate and rhythm, S1, S2 without murmur, rub or gallop. ABDOMEN: Soft, nontender, nondistended, normoactive bowel sounds, no guarding, no rebound, no hepatosplenomegaly, no masses. EXTREMITIES: 2+ pulses, warm, well-perfused, no edema. NEUROLOGICAL: Cranial nerves II through XII grossly intact. Normal speech, gait not observed. PSYCH: Normal mood, normal affect. SKIN: Warm, dry, normal turgor, no rashes or lesions noted. LABS HOSPITAL COURSE: Date of Admission:09/12/17 Date of Discharge: 09/15/17 Discharge Summary Reason For Visit: TRANSIENT CEREBRAL INFARCTION Current Active Problems Cerebrovascular small vessel disease (Acute) Coronary artery disease (Acute) Hyperlipidemia (Acute) Hypertensive cardiomyopathy (Acute) PVC (premature ventricular contraction) (Acute) S/P coronary artery stent placement (Acute) TIA (transient ischemic attack) (Acute) - Instructions - Home Medications Comprehensive Discharge Medication List: Ambulatory Orders Aspirin [Ecotrin] 325 mg PO DAILY 09/12/17 Atorvastatin Ca [Lipitor] 40 mg PO HS 09/12/17 Clopidogrel Bisulfate [Plavix -] 75 mg PO DAILY 09/12/17 Losartan Potassium 50 mg PO DAILY 09/12/17 Metoprolol Succinate [Toprol Xl -] 100 mg PO DAILY 09/12/17
[2017-09-15] MEDS: LOSARTAN POTASSIUM 50 MG TABLET (FP) PO SCH ×3 (08:51→21:49)
[2017-09-15] MEDS: CLOPIDOGREL BISULFATE 75 MG TABLET (FP) PO SCH (09:00)
--- NOTE | 2017-09-15 10:55 | PN ---
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 mri of brain shows small vascular ischemic disease and carotid ultrasound was unremarkable. - Current Medication List Current Medications: Active Medications Acetaminophen (Tylenol -) 650 mg PO Q6H PRN PRN Reason: FEVER OR PAIN Aspirin (Ecotrin -) 81 mg PO DAILY [facility] OF [facility] Last Admin: 09/15/17 09:01 Dose: Not Given Atorvastatin Calcium (Lipitor -) 40 mg PO HS ON LICENSE OF [facility] Last Admin: 09/14/17 22:04 Dose: 40 mg Clopidogrel Bisulfate (Plavix -) 75 mg PO DAILY [facility] OF [facility] Last Admin: 09/15/17 09:00 Dose: 75 mg Heparin Sodium (Porcine) (Heparin -) 5,000 unit SQ TID ON [facility] OF [facility] Last Admin: 09/15/17 05:20 Dose: 5,000 unit Losartan Potassium (Cozaar -) 50 mg PO BID ON [facility] OF [facility] Last Admin: 09/15/17 09:01 Dose: Not Given Metoprolol Succinate (Toprol Xl -) 100 mg PO DAILY ON [facility] OF [facility] Last Admin: 09/15/17 09:02 Dose: Not Given - Objective Vital Signs: Vital Signs Temperature 98.7 F 09/15/17 08:35 Pulse Rate 81 09/15/17 09:40 Respiratory Rate 18 09/15/17 09:40 Blood Pressure 150/92 09/15/17 09:40 O2 Sat by Pulse Oximetry (%) 96 09/15/17 09:03 Constitutional: Yes: No Distress, Calm Neck: Yes: Supple Cardiovascular: Yes: Regular Rate and Rhythm Respiratory: Yes: Regular, CTA Bilaterally Gastrointestinal: Yes: Normal Bowel Sounds, Soft Edema: No Labs: CBC, BMP 09/13/17 06:00 09/13/17 06:00 INR, PTT INR 1.12 (0.82-1.09) 09/12/17 16:30 Problem List - Problems (1) Coronary artery disease Code(s): I25.10 - ATHSCL HEART DISEASE OF [place] CORONARY ARTERY W/O ANG PCTRS Qualifiers: Coronary Disease-Associated Artery/Lesion type: [place] artery [place] vs. transplanted heart: [place] heart Associated angina: without angina Qualified Code(s): I25.10 - Atherosclerotic heart disease of [place] coronary artery without angina pectoris (2) S/P coronary artery stent placement Code(s): Z95.5 - PRESENCE OF CORONARY ANGIOPLASTY IMPLANT AND GRAFT (3) Hypertensive cardiomyopathy Code(s): I11.9 - HYPERTENSIVE HEART DISEASE WITHOUT HEART FAILURE; I43 - CARDIOMYOPATHY IN DISEASES CLASSIFIED ELSEWHERE Qualifiers: Heart failure presence: without heart failure Qualified Code(s): I11.9 - Hypertensive heart disease without heart failure; I43 - Cardiomyopathy in diseases classified elsewhere; I43 - Cardiomyopathy in diseases classified elsewhere; I43 - Cardiomyopathy in diseases classified elsewhere; I43 - Cardiomyopathy in diseases classified elsewhere (4) Hyperlipidemia Code(s): E78.5 - HYPERLIPIDEMIA, UNSPECIFIED Qualifiers: Hyperlipidemia type: pure hypercholesterolemia Qualified Code(s): E78.00 - Pure hypercholesterolemia, unspecified; E78.0 - Pure hypercholesterolemia (5) PVC (premature ventricular contraction) Code(s): I49.3 - VENTRICULAR PREMATURE DEPOLARIZATION (6) Cerebrovascular small vessel disease Code(s): I67.9 - CEREBROVASCULAR DISEASE, UNSPECIFIED (7) TIA (transient ischemic attack) Code(s): G45.9 - TRANSIENT CEREBRAL ISCHEMIC ATTACK, UNSPECIFIED Qualifiers: Transient cerebral ischemia type: unspecified Qualified Code(s): G45.9 - Transient cerebral ischemic attack, unspecified Assessment/Plan 1. TIA since resolved, cerebrovascular disease 2. CAD s/p [place], PCI (Stent 2010), angina pectoris 3. HTN/HCVD 4. Hyperlipidemia 5. PVC P:1. Continue ASA 81 qd, Plavix 75 qd, Lipitor 40 qhs, losartan 50 bid, and Toprol XL 100 qd 2. F/u echocardiogram to assess ventricular and valve fxn, blacktop spreader r/ o PAF 3. Emphasized importance of compliance 4. DVT prophylaxis, plan for f/u with Dr. Hoffman of [facility] upon d/c.
[2017-09-15] MEDS ORDERED: METOPROLOL TARTRATE 25 MG TABLET (FP) PO ONE (14:30)
[2017-09-15] MEDS: ATORVASTATIN CA 40 MG TABLET (FP) PO SCH (21:49)
--- NOTE | 2017-09-15 23:57 | PN ---
Physical Exam: SUBJECTIVE: Patient seen and examined. No complaints. BP markedly elevated but asymptomatic. OBJECTIVE: Vital Signs Period Temp Pulse Resp BP Sys/Novoa Pulse Ox Last 24 Hr 97.7 F-98.7 F 59-81 18-20 130-182/80-122 95-96 GENERAL: The patient is awake, alert, and fully oriented, in no acute distress. LUNGS: CTA HEART: RRR, S1, S2 ABDOMEN: Soft, nontender, nondistended, normoactive bowel sounds, no guarding, no rebound EXTREMITIES: 2+ pulses, warm, well-perfused, no edema NEUROLOGICAL: Cranial nerves II through XII intact. Normal speech, gait not observed. Active Medications Generic Name Dose Route Start Last Admin Trade Name Freq PRN Reason Stop Dose Admin Acetaminophen 650 mg 09/14/17 01:40 Tylenol - PO Q6H PRN FEVER OR PAIN Aspirin 81 mg 09/14/17 10:00 09/15/17 09:01 Ecotrin - PO Not Given DAILY [facility] Atorvastatin Calcium 40 mg 09/13/17 22:00 09/15/17 21:49 Lipitor - PO 40 mg HS [facility] Administration Clopidogrel Bisulfate 75 mg 09/12/17 20:20 09/15/17 09:00 Plavix - PO 75 mg DAILY [facility] Administration Heparin Sodium (Porcine) 5,000 unit 09/12/17 22:00 09/15/17 21:49 Heparin - SQ 5,000 unit TID [facility] Administration Losartan Potassium 50 mg 09/13/17 22:00 09/15/17 21:49 Cozaar - PO 50 mg BID [facility] Administration Metoprolol Succinate 100 mg 09/15/17 22:00 09/15/17 21:49 Toprol Xl - PO 100 mg BID [facility] Administration ASSESSMENT/PLAN: 51 year-old male with a PMH significant for HTN, HLD, CAD s/p [place] s/p stents x 2 (2010). Was initially in observation status pending echo (not available over the weekend). Today's echo shows systolic heart failure with severe RWMAs. Blood pressure remains markedly elevated (182/122). Patient is at high risk for a cerebrovascular event and requires telemetry monitoring. For these reasons patient was converted from observation to inpatient. TIA --CT head negative for acute process; mild calcification of cavernous carotid arteries --MRI brain: no definite infarct; microvascular chronic changes --US carotids: unremarkable --continue ASA, Plavix, high-dose Lipitor --neuro consult: TIA likely secondary to not taking ASA/Plavix for 48 hours Systolic heart failure Hypertensive cardiomyopathy --Echo: 09/16: LV function mild to moderately reduced, mild to moderate global hypokinesis, mid anteroseptal wall severe hypokinesis, basal anteroseptal wall severe hypokinesis; mild MR --appears euvolemic CAD s/p stents x 2 --no events on telemetry; serial ECGs sinus carleen --troponin neg x 3 --CXR unremarkable --continuue ASA, Plavix, Lipitor, Toprol XL Hypertensive urgency --BP continues to be markedly elevated (188/122) --continue increased Losartan --increase Toprol XL to 100mg BID --if BP does not improve consider adding diuretic Hyperlipidemia --continue Lipitor FEN Fluids: PO intake adequate Electrolytes: replete as indicated Nutrition: low sodium DVT prophylaxis: subq heparin Physical therapy Dispo: continues to require inpatient care. Full Code. Visit type - Emergency Visit Emergency Visit: Yes ED Registration Date: 09/15/17 Care time: The patient presented to the Emergency Department on the above date and was hospitalized for further evaluation of their emergent condition. - New Patient This patient is new to me today: No - Critical Care Critical Care patient: No
[2017-09-16] MEDS: HEPARIN NA (PORCINE) 5,000 UNITS/ML 1ML VIAL SQ SCH ×2 (05:09→14:08)
[2017-09-16 07:43] LABS: MCH 30.4 pg (25.7-33.7); MCHC 33.4 g/dl (32.0-35.9); MEAN CELL VOLUME 90.9 fl (80-96); MEAN PLT VOLUME 9.7 fl (7.5-11.1); PLATELET COUNT 185 K/MM3 (134-434); RDW 14.1 % (11.9-15.9); WHITE BLOOD COUNT 3.9 K/mm3 (4.0-10.0)
--- NOTE | 2017-09-16 08:04 | PN ---
Physical Exam: SUBJECTIVE: Patient seen and examined. Doing well. Asymptomatic. Lying flat without orthopnea or PND. No residual facial numbness. OBJECTIVE: Vital Signs Period Temp Pulse Resp BP Sys/Novoa Pulse Ox Last 24 Hr 97.9 F-98.7 F 61-81 18-20 146-182/77-122 96-98 GEN: AAOx3, NAD, Lying comfortably, smiling HEENT: PERRLA, EOMi CV: S1, S2, RRR LUNG: CTABL ABD: Soft, NT, ND, normoactive BS MSK: No edema, no erythema NEURO: CN 2-12 intact, no sensation or MSJK deficits, no facial droop. Active Medications Generic Name Dose Route Start Last Admin Trade Name Freq PRN Reason Stop Dose Admin Acetaminophen 650 mg 09/14/17 01:40 Tylenol - PO Q6H PRN FEVER OR PAIN Aspirin 81 mg 09/14/17 10:00 09/15/17 09:01 Ecotrin - PO Not Given DAILY [facility] Atorvastatin Calcium 40 mg 09/13/17 22:00 09/15/17 21:49 Lipitor - PO 40 mg HS [facility] Administration Clopidogrel Bisulfate 75 mg 09/12/17 20:20 09/15/17 09:00 Plavix - PO 75 mg DAILY [facility] Administration Heparin Sodium (Porcine) 5,000 unit 09/12/17 22:00 09/16/17 05:09 Heparin - SQ 5,000 unit TID [facility] Administration Losartan Potassium 50 mg 09/13/17 22:00 09/15/17 21:49 Cozaar - PO 50 mg BID [facility] Administration Metoprolol Succinate 100 mg 09/15/17 22:00 09/15/17 21:49 Toprol Xl - PO 100 mg BID [facility] Administration ASSESSMENT/PLAN: Mr. Gandhi is a 51yo M with PMHx of HTN, HLD, [place] s/p stents x2 who presented to ER with R facial numbness + right sided paresthesias after not taking Plavix. Found to have a BP of 178/128. He was diagnosed w/ TIA. Now converted from observation to inpatient due to difficult to control BP # TIA - Could be ischemic from uncontrolled HTN vs embolic from heart from PAF. CT neg , MRI neg, Carotid u/s neg, Continue ASA 81, Plavix 75, Lipitor 40. F/u neuro as outpatient. Control BP. # HTN - Presented in hypertensive emergency, initially maintained high for permissive hypertension, better controlled w/ Losartan 50 BID (max) + Toprol XL 100 BID ( max is 400). # Systolic CHF - Echo shows EF 47.5%, mild to moderately reduced LVSF likely 2/2 prior MIs. Not fluid overloaded at the moment. # CAD - s/p stents x2, continue ASA, Plavix, # Hyperlipidemia - continue Lipitor 40 HS # FEN - Sodium controlled diet, no IVF, elec wnl # PPx - HSQ TID, no GI needed, walks well w/ PT # Dispo - If can adequately control BP, then can safely d/c home, no needs as per SW. F/u with neuro and cards as o/p d/w Dr Debbi Shi MD - PGY1 Resident Internal Medicine Visit type - Emergency Visit Emergency Visit: No - New Patient This patient is new to me today: No - Critical Care Critical Care patient: No - Discharge Referral Referred to [facility] Med P.C[facility] No
[2017-09-16 08:25] LABS: ANION GAP 7 (8-16); CALCIUM 8.9 mg/dL (8.5-10.1); CO2 30 mmol/L (21-32); GLUCOSE,RANDOM 77 mg/dL (74-106); MAGNESIUM 2.2 mg/dL (1.8-2.4)
[2017-09-16 08:28] LABS: CREATININE 0.9 mg/dL (0.7-1.3)
[2017-09-16 10:02] VITALS: BP 148/97; PULSE 76; TEMP 98.3
[2017-09-16] MEDS: LOSARTAN POTASSIUM 50 MG TABLET (FP) PO SCH (10:02)
[2017-09-16] MEDS: ASPIRIN COATED 81 MG TABLET.EC PO SCH (10:02)
[2017-09-16] MEDS: METOPROLOL SUCCINATE 100 MG TAB.SR.24H (FP) PO SCH (10:02)
[2017-09-16] MEDS: CLOPIDOGREL BISULFATE 75 MG TABLET (FP) PO SCH (10:02)
--- NOTE | 2017-09-16 10:47 | PN ---
Progress Note, Physician Chief Complaint: Events noted Not in distress History of Present Illness: Patient was seen and examined. Awake and alert. Chart was reviewed Denies chest pain, SOB or palpitations - Current Medication List Current Medications: Active Medications Acetaminophen (Tylenol -) 650 mg PO Q6H PRN PRN Reason: FEVER OR PAIN Aspirin (Ecotrin -) 81 mg PO DAILY [facility] Last Admin: 09/16/17 10:02 Dose: 81 mg Atorvastatin Calcium (Lipitor -) 40 mg PO HS [facility] Last Admin: 09/15/17 21:49 Dose: 40 mg Clopidogrel Bisulfate (Plavix -) 75 mg PO DAILY [facility] Last Admin: 09/16/17 10:02 Dose: 75 mg Heparin Sodium (Porcine) (Heparin -) 5,000 unit SQ TID [facility] Last Admin: 09/16/17 05:09 Dose: 5,000 unit Losartan Potassium (Cozaar -) 50 mg PO BID [facility] Last Admin: 09/16/17 10:02 Dose: 50 mg Metoprolol Succinate (Toprol Xl -) 100 mg PO BID [facility] Last Admin: 09/16/17 10:02 Dose: 100 mg - Objective Vital Signs: Vital Signs Temperature 98.3 F 09/16/17 09:58 Pulse Rate 76 09/16/17 09:58 Respiratory Rate 20 09/16/17 09:58 Blood Pressure 148/97 09/16/17 09:58 O2 Sat by Pulse Oximetry (%) 98 09/15/17 22:00 Neck: Yes: Supple Cardiovascular: Yes: Regular Rate and Rhythm, S1, S2. No: Murmur Respiratory: Yes: CTA Bilaterally Gastrointestinal: Yes: Normal Bowel Sounds, Soft. No: Tenderness Edema: No Labs: CBC, BMP 09/16/17 06:50 09/16/17 06:50 INR, PTT INR 1.12 (0.82-1.09) 09/12/17 16:30 Problem List - Problems (1) Cerebrovascular small vessel disease Code(s): I67.9 - CEREBROVASCULAR DISEASE, UNSPECIFIED (2) Coronary artery disease Code(s): I25.10 - ATHSCL HEART DISEASE OF [place] CORONARY ARTERY W/O ANG PCTRS Qualifiers: Coronary Disease-Associated Artery/Lesion type: [place] artery [place] vs. transplanted heart: [place] heart Associated angina: without angina Qualified Code(s): I25.10 - Atherosclerotic heart disease of [place] coronary artery without angina pectoris (3) Hyperlipidemia Code(s): E78.5 - HYPERLIPIDEMIA, UNSPECIFIED Qualifiers: Hyperlipidemia type: pure hypercholesterolemia Qualified Code(s): E78.00 - Pure hypercholesterolemia, unspecified; E78.0 - Pure hypercholesterolemia (4) Hypertensive cardiomyopathy Code(s): I11.9 - HYPERTENSIVE HEART DISEASE WITHOUT HEART FAILURE; I43 - CARDIOMYOPATHY IN DISEASES CLASSIFIED ELSEWHERE Qualifiers: Heart failure presence: without heart failure Qualified Code(s): I11.9 - Hypertensive heart disease without heart failure; I43 - Cardiomyopathy in diseases classified elsewhere; I43 - Cardiomyopathy in diseases classified elsewhere; I43 - Cardiomyopathy in diseases classified elsewhere; I43 - Cardiomyopathy in diseases classified elsewhere (5) PVC (premature ventricular contraction) Code(s): I49.3 - VENTRICULAR PREMATURE DEPOLARIZATION (6) S/P coronary artery stent placement Code(s): Z95.5 - PRESENCE OF CORONARY ANGIOPLASTY IMPLANT AND GRAFT (7) TIA (transient ischemic attack) Code(s): G45.9 - TRANSIENT CEREBRAL ISCHEMIC ATTACK, UNSPECIFIED Qualifiers: Transient cerebral ischemia type: unspecified Qualified Code(s): G45.9 - Transient cerebral ischemic attack, unspecified Assessment/Plan 1. TIA since resolved - cerebrovascular disease 2. CAD s/p ME, PCI/stent, angina pectoris 3. HTN/HCVD 4. Hyperlipidemia 5. PVC PLAN: 1. Continue ASA 81 qd, Plavix 75 qd, Lipitor 40 qhs, Losartan 50 bid, and Toprol XL 100 qd 2. Transthoracic echocardiography revealed mild to moderate LV systolic dysfunction, mild MR 3. Follow up with Dr. Hoffman of [facility] as outpatient Discharge planning Demetrius Arceo MD
--- NOTE | 2017-09-16 13:00 | PN ---
Teaching Attending Note Name of Resident: Syed Shi ATTENDING PHYSICIAN STATEMENT I saw and evaluated the patient. I reviewed the resident's note and discussed the case with the resident. I agree with the resident's findings and plan as documented. SUBJECTIVE:asymptomatic. denies Cp, SOB, fever, chills, LUCERO, blurred vision or recurring facial numbness. OBJECTIVE: Last Vital Signs Temp Pulse Resp BP Pulse Ox 98.3 F 76 20 148/97 98 09/16/17 09:58 09/16/17 09:58 09/16/17 09:58 09/16/17 09:58 09/15/17 22:00 General NAD CV S1 s2 RRR no murmur/rub/gallop Lungs CTA B/L no wheezing/rales/rhonchi ASSESSMENT AND PLAN: 51 year-old male with a PMH significant for HTN, HLD, CAD s/p GA s/p stents x 2 (2010) presentd to the ER with facial numbness which resolved and found to have significant LV hypokinesis 1. TIA- symptoms resolved. imaging reviewed. symptoms likely due to asa/plavix were held. evaluated by neuro. 2. Systolic CHF- Global hypokinesis seen on echo. as per pt had cath earlier in the year. no events on cardiac monitoring. seen by cardio. heart faillure medications uptitrated. pt requests to follow up with private skimmer reverberatory. encouraged to see in 1-2 weeks 3. HTN urgency- now improved. losartan and toprol increased with good response. counseled on importance of medication compliance and follow up. verbalized understanding and agreement. 4. CAD s/p stents- re-started home medication. no episodes of CP 5. dyslipidemia- statin 6. DVT ppx- hep sq 7. d/c home. counseled on medication and follow up. verbalized understading and agreement
--- NOTE | 2017-09-16 13:30 | PN ---
Progress Note (short form) - Note Progress Note: 51 year old male history of HTN, HLD, CAD s/p Stents x 2010. Patient was working and experienced right sided face and arm numbness with difficulty swallowing. Patient was brought to hospital and his blood pressure was high. For two days he was not taking any medication, he was busy with work. mri of brain , CT head and Carotid Ultrasound was normal. Neurological Examination afebrile bp 157/105, pulse 80 regular and rr 18 Alert oriented x 3 follow command and speech is normal EOMI, no face asymmetry , vf normal by conforntation motor is normal, sensation is normal ct head is normal mri of brain is normal carotid ultrasound is normal Assessment- TIA, Risk factor include HTN,HLD AND CAD Plan - Continue antiplatelet and statin as current dose follow up in clinic outpatient Thank you so much Yazan Puri MD
--- NOTE | 2017-09-16 14:47 | DS ---
Physical Exam: SUBJECTIVE: Patient seen and examined. Doing well. Asymptomatic. Numbness/ tingling has not recurred. OBJECTIVE: Vital Signs Period Temp Pulse Resp BP Sys/Novoa Pulse Ox Last 24 Hr 97.9 F-98.4 F 61-76 18-20 146-166/77-106 96-98 PHYSICAL EXAM GEN: AAOx3, NAD, Lying comfortably, smiling HEENT: PERRLA, EOMi CV: S1, S2, RRR LUNG: CTABL ABD: Soft, NT, ND, normoactive BS MSK: No edema, no erythema NEURO: CN 2-12 intact, no sensation or MSJK deficits, no facial droop. LABS Laboratory Last Values WBC 3.9 K/mm3 (4.0-10.0) L 09/16/17 06:50 RBC 5.18 M/mm3 (4.00-5.60) 09/16/17 06:50 Hgb 15.8 GM/dL (11.7-16.9) 09/16/17 06:50 Hct 47.2 % (35.4-49) 09/16/17 06:50 MCV 90.9 fl (80-96) 09/16/17 06:50 MCH 30.4 pg (25.7-33.7) 09/16/17 06:50 MCHC 33.4 g/dl (32.0-35.9) 09/16/17 06:50 RDW 14.1 % (11.9-15.9) 09/16/17 06:50 Plt Count 185 K/MM3 (134-434) 09/16/17 06:50 MPV 9.7 fl (7.5-11.1) 09/16/17 06:50 Neutrophils % 51.3 % (42.8-82.8) D 09/13/17 06:00 Lymphocytes % 32.2 % (8-40) D 09/13/17 06:00 Monocytes % 11.5 % (3.8-10.2) H 09/13/17 06:00 Eosinophils % 4.2 % (0-4.5) D 09/13/17 06:00 Basophils % 0.8 % (0-2.0) 09/13/17 06:00 PT with INR 12.60 SEC (9.98-11.88) H 09/12/17 16:30 INR 1.12 (0.82-1.09) 09/12/17 16:30 Sodium 139 mmol/L (136-145) 09/16/17 06:50 Potassium 3.8 mmol/L (3.5-5.1) 09/16/17 06:50 Chloride 102 mmol/L (98-107) 09/16/17 06:50 Carbon Dioxide 30 mmol/L (21-32) 09/16/17 06:50 Anion Gap 7 (8-16) L 09/16/17 06:50 BUN 12 mg/dL (7-18) 09/16/17 06:50 Creatinine 0.9 mg/dL (0.7-1.3) 09/16/17 06:50 Creat Clearance w eGFR > 60 (>60) 09/13/17 06:00 Random Glucose 77 mg/dL (74-106) 09/16/17 06:50 Hemoglobin A1c % 5.7 % (4.8-6.0) 09/16/17 06:50 Calcium 8.9 mg/dL (8.5-10.1) 09/16/17 06:50 Phosphorus 3.0 mg/dL (2.5-4.9) D 09/16/17 06:50 Magnesium 2.2 mg/dL (1.8-2.4) 09/16/17 06:50 Total Bilirubin 0.9 mg/dL (0.2-1.0) D 09/13/17 06:00 AST 13 U/L (15-37) L D 09/13/17 06:00 ALT 25 U/L (12-78) 09/13/17 06:00 Alkaline Phosphatase 69 U/L (45-117) 09/13/17 06:00 Creatine Kinase 244 IU/L (39-308) 09/12/17 16:30 Creatine Kinase Index 1.4 % (0.0-5.0) 09/12/17 16:30 CK-MB (CK-2) 3.458 ng/mL (0.5-3.6) 09/12/17 16:30 Troponin I 0.04 ng/ml (0.00-0.05) 09/13/17 06:00 Total Protein 6.8 g/dl (6.4-8.2) 09/13/17 06:00 Albumin 3.8 g/dl (3.4-5.0) 09/13/17 06:00 Triglycerides 81 mg/dL (35-160) 09/12/17 16:30 Cholesterol 119 mg/dL (50-200) 09/12/17 16:30 Total LDL Cholesterol 65 mg/dL (5-100) 09/12/17 16:30 HDL Cholesterol 42 mg/dL (40-60) 09/12/17 16:30 TSH 1.41 uIU/ml (0.358-3.74) 09/13/17 06:00 Urine Color Ltyellow 09/12/17 16:30 Urine Appearance Clear 09/12/17 16:30 Urine pH 6.0 (5.0-8.0) 09/12/17 16:30 Ur Specific [place] 1.016 (1.001-1.035) 09/12/17 16:30 Urine Protein Negative (NEGATIVE) 09/12/17 16:30 Urine Glucose (UA) 1+ (NEGATIVE) H 09/12/17 16:30 Urine Ketones Negative (NEGATIVE) 09/12/17 16:30 Urine Blood Negative (NEGATIVE) 09/12/17 16:30 Urine Nitrite Negative (NEGATIVE) 09/12/17 16:30 Urine Bilirubin Negative (NEGATIVE) 09/12/17 16:30 Urine Urobilinogen 2.0 mg/dL (0.2-1.0) 09/12/17 16:30 Ur Leukocyte Esterase Negative (NEGATIVE) 09/12/17 16:30 Blood Type A POSITIVE 09/12/17 16:30 Antibody Screen Negative 09/12/17 16:30 HOSPITAL COURSE: Date of Admission:09/15/17 Date of Discharge: 09/16/17 Mr Gandhi is a 51 year-old male with a PMH significant for HTN, HLD, CAD s/p [place] s/p stents x 2 (2010). He presented to the ER after developing R facial numbness, difficulty swallowing, and paresthesias in the fingertips of his right hand. His co-workers called 911. By the time EMS arrived, his symptoms were resolving, and by the time he reached the ED they were completely resolved. The symptoms have not recurred. Patient states he did not take his home medications for the past two days because he was busy but is generally compliant with his medication regimen. 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 Hoffman, a year ago. He gets his prescriptions at [facility] in [place]. Patient denies chest pain/pressure, palpitations, lightheadedness, SOB, VU, orthopnea, and/or bilateral lower extremity edema. He denies headache, vision change, and/ or weakness in any extremity. In the ER he was found to have a BP of 178/128. CT head and MRI were negative. His symptoms never reappeared, and he was diagnosed with a TIA, and neurology was on board and allowed for permissive HTN within the first 24 hours. Further tests such as the carotid ultrasound were negative. However, an echocardiogram revealed new onset systolic heart failure with EF 47.5%, mild to moderately reduced LVSF. This is likely from his previous myocardial infarctions. He was not in fluid overload during his hospital stay. He stayed in the hospital a couple more days because of elevated blood pressures. His home medications were increased and with the new regimen his SBPs were under 150. His blood pressure improved quicker than expected. He will followup with his Lumber Cutter Dr. Hoffman at [place], and with Dr Murry within 2 weeks. The patient was aware of the hospital course and agrees with the plan to be discharged home. Minutes to complete discharge: 45 Discharge Summary Reason For Visit: TRANSIENT CEREBRAL INFARCTION Current Active Problems Cerebrovascular small vessel disease (Acute) Coronary artery disease (Acute) Hyperlipidemia (Acute) Hypertensive cardiomyopathy (Acute) PVC (premature ventricular contraction) (Acute) S/P coronary artery stent placement (Acute) TIA (transient ischemic attack) (Acute) Condition: Improved - Instructions Diet, Activity, Other Instructions: RECOMMENDATIONS: - You were admitted because you had a mini stroke that resolved. You have a lot of risk factors - Please continue taking all the prescribed medications below - Please keep a low sodium and low cholesterol diet as this will prevent a future stroke - Please maintain a healthy lifestyle and exercise - You need to keep your blood pressure under control, do this by watching your diet and taking all your medications - You need to followup with your Lumber Cutter Dr Hoffman at [place]. - If you feel any numbness or tingling or problems moving your face or your body , please come back to the Emergency room MEDICATION CHANGES: - STOP your original blood pressure medications. - START Losartan 50mg tablets two times a day - START Metoprolol XL 100mg tablets two times a day FOLLOWUPS: - Followup with PCP Mary Jo Peck in 2 weeks - Followup with Dr. Boy Hoffman - Lumber Cutter at [facility] - Followup with Dr. Azevedo - Neurologist Referrals: Yazan Puri MD [Staff Physician] - 2 Weeks Boy Hoffman [Non Staff, Medical] - 2 Weeks Disposition: HOME - Home Medications Comprehensive Discharge Medication List: Ambulatory Orders Aspirin [Ecotrin] 325 mg PO DAILY 09/12/17 Atorvastatin Ca [Lipitor] 40 mg PO HS 09/12/17 Clopidogrel Bisulfate [Plavix -] 75 mg PO DAILY 09/12/17 Losartan Potassium [Cozaar -] 50 mg PO BID #60 tablet 09/16/17 Metoprolol Succinate [Toprol XL -] 100 mg PO BID #60 tab.sr.24h 09/16/17 This patient is new to me today: No Emergency Visit: No Critical Care patient: No - Discharge Referral Referred to [facility] No
== END 2017-09-16 14:00 | disposition home or self-care (01) | DRG 47 ==
LOC: JER 15:10 → JERBED 16:48 → J4S 19:20 → JERBED 20:36 → J4S 22:31 → OBSVTOIN 09-15 15:48
PROVIDERS: ADMIT Internal Medicine; ATTEND Internal Medicine
DX: G45.9 Transient cerebral ischemic attack, unspecified (principal); I25.10 Atherosclerotic heart disease of native coronary artery without angina pectoris; E78.5 Hyperlipidemia, unspecified; Z98.61 Coronary angioplasty status; I11.0 Hypertensive heart disease with heart failure; I50.20 Unspecified systolic (congestive) heart failure; I49.3 Ventricular premature depolarization
CPT/HCPCS: 36415; 70450-TC; 70551-TC; 71010-TC; 80048; 80053; 81003; 82465; 82550; 82553; 83036; 83718; 83721; 83735; 84100; 84443; 84478; 84484; 85025; 85027; 85610; 86850; 86900; 86901; 93005; 93010; 93306-TC; 93880-TC; 97116-GP; 97161-GP; 99285-25; G0378; J1644